=== PATIENT | male | born 2000 | race Caucasian/White ===

== ENCOUNTER 2018-04-22 16:51 | Emergency (ER) | payer BC, OTHER ==
[2018-04-22 17:27] VITALS: BP 135/79
--- NOTE | 2018-04-22 18:44 | UC ---
Throat Pain/Nasal Andrés HPI - HPI Summary HPI Summary: 18-year-old male presents with 2 week history of nasal congestion, sinus pressure, mild sore throat, and nonproductive cough. States over last 4-5 days he has been developing left ear pain and pressure. Denies fever, chills, dizziness, chest pain, shortness of breath, abdominal pain, nausea, or vomiting. - History of Current Complaint Chief Complaint: UCGeneralIllness Stated Complaint: CONGESTION/BI LAT EAR COMP/COUGH Time Seen by Provider: 04/22/18 18:07 Hx Obtained From: Patient Onset/Duration: Lasting Weeks - 2 Severity: Moderate Pain Intensity: 5 Cough: Nonproductive Associated Signs & Symptoms: Positive: Sinus Discomfort, Nasal Discharge, Other - Left ear pain. Negative: Dysphagia, Wheezing, Hoarseness, Fever, Vomiting - Allergies/Home Medications Allergies/Adverse Reactions: Allergies Allergy/AdvReac Type Severity Reaction Status Date / Time No Known Allergies Allergy Verified 04/22/18 17:27 PMH/Surg Hx/FS Hx/Imm Hx Previously Healthy: Yes - denies significant past medical history - Surgical History Surgical History: None - Family History Family History: Noncontributory - Social History Occupation: Student Lives: Dormitory/Roommates Alcohol Use: Occasionally Substance Use Type: Marijuana Substance Use Comment - Amount & Last Used: occasional Smoking Status (MU): Never Smoked Tobacco Review of Systems Constitutional: Negative Skin: Negative Eyes: Negative ENT: Sore Throat, Ear Ache, Nasal Discharge, Sinus Congestion Respiratory: Cough Cardiovascular: Negative Gastrointestinal: Negative Is Patient Immunocompromised?: No All Other Systems Reviewed And Are Negative: Yes Physical Exam Triage Information Reviewed: Yes Appearance: Well-Appearing, No Pain Distress, Well-Nourished Vital Signs: Initial Vital Signs Temp 98.5 F 04/22/18 17:24 Pulse 85 04/22/18 17:24 Resp 16 04/22/18 17:24 BP 135/79 04/22/18 17:24 Pulse Ox 100 04/22/18 17:24 Vital Signs Reviewed: Yes Eyes: Positive: Conjunctiva Clear. Negative: Discharge ENT: Positive: Pharyngeal erythema - Mild with PND, Nasal congestion, Nasal drainage, TM bulging - Left, TM red - Left with effusion, Uvula midline. Negative: Tonsillar swelling, Tonsillar exudate, Sinus tenderness Neck: Positive: Supple, Nontender, No Lymphadenopathy Respiratory: Positive: Lungs clear, Normal breath sounds, No respiratory distress Cardiovascular: Positive: RRR, No Murmur Neurological: Positive: Alert Skin Exam: Normal Throat Pain/Nasal Course/Dx - Course Course Of Treatment: 18 year old male with 2 week history of URI symptoms with 4 days of left ear pain. Exam revealed a left otitis media. Will treat with course of Augmentin. He is to follow up with [facility]. - Differential Dx/Diagnosis Provider Diagnoses: URI, left otitis media Discharge - Sign-Out/Discharge Documenting (check all that apply): Patient Departure All imaging exams completed and their final reports reviewed: No Studies - Discharge Plan Condition: Stable Disposition: HOME Prescriptions: Amoxicillin/Clavulanate TAB* [Augmentin TAB 875*] 875 mg PO BID #20 tab Fluticasone NASAL SPRAY 50MCG* [Flonase NASAL SPRAY 50MCG*] 2 spray BOTH NARES DAILY #1 btl Patient Education Materials: Ear Infection (ED), Upper Respiratory Infection ( ED) Referrals: No Primary Care Phys,NOPCP [Primary Care Provider] - [facility] [Outside] - If Needed Additional Instructions: Start Augmentin 1 tab twice a day for 10 days to treat your upper respiratory infection and ear infection. Be sure to complete the entire course of antibiotic even if symptoms improve. Take with food to avoid upset stomach. Start fluticasone nasal spray 2 sprays each nostril once daily. I would recommend using a saline nasal rinse kit such as Netti Pot or NeilMed at least twice a day to help thin secretions and promoted drainage. Use over the counter Sudafed according to directions to help relieve congestion and sinus pressure. Follow up at the [facility] if no improvement in symptoms. - Billing Disposition and Condition Condition: STABLE Disposition: Home
== END 2018-04-22 18:50 | disposition home or self-care (01) ==
LOC: UCCORT 16:51
DX: H66.92 Otitis media, unspecified, left ear (principal); J06.9 Acute upper respiratory infection, unspecified
CPT/HCPCS: 99202; G0463